=== PATIENT | female | born 1960 | race Caucasian/White ===

== ENCOUNTER → 2023-09-12 14:19 | Outpatient (REF) | payer BC, SELFPAY | LOC: HWRAD 14:19 | PROVIDERS: ATTENDING PHYSICIAN Internal Medicine Hematology & Oncology; FAMILY PHYSICIAN Family Medicine | DX: C50.911 Malignant neoplasm of unspecified site of right female breast (principal); Z13.820 Encounter for screening for osteoporosis; M81.0 Age-related osteoporosis without current pathological fracture | CPT/HCPCS: 77080 ==

== ENCOUNTER → 2023-11-04 15:20 | Outpatient (REF) | payer BC, SELFPAY | LOC: WDC 15:20 | PROVIDERS: ATTENDING PHYSICIAN Surgery; FAMILY PHYSICIAN Family Medicine | DX: Z12.31 Encounter for screening mammogram for malignant neoplasm of breast (principal) | CPT/HCPCS: 77063; 77067 ==

== ENCOUNTER → 2024-02-03 14:49 | Outpatient (REF) | payer BC, SELFPAY | LOC: WDC 14:49 | PROVIDERS: ATTENDING PHYSICIAN Surgery; FAMILY PHYSICIAN Family Medicine | DX: R92.2 Inconclusive mammogram (principal) | CPT/HCPCS: 76641 ==

== ENCOUNTER 2024-07-29 18:37 | Inpatient (IN) | payer BC, SELFPAY ==
[2024-07-29 12:00] VITALS: BP 130/81
[2024-07-29 12:23] LABS: % Basophils 0.4 % (0-2); % Eosinophils 1.3 % (0-6); % Immature Granulocytes 0.4 % (0-0.5); % Lymphocytes 10.2 % (20.5-51.1); % Monocytes 8.5 % (1.7-9.3); % Neutrophils 79.2 % (42.2-75.2); Absolute Eosinophils 0.1 10^3/uL (0-0.7); Absolute Lymphocytes 0.8 10^3/uL (1.2-3.4); Absolute Monocytes 0.6 10^3/uL (0.1-0.6); Hematocrit 33.5 % (37.0-47.0); Mean Corp Hgb Conc. 35.8 g/dL (33.0-37.0); Mean Corpuscular Hgb 30.8 pg (27.0-31.0); Mean Corpuscular Volume 86.1 fL (81.0-99.0); Mean Platelet Volume 8.5 fL (7.4-10.4); Nucleated Red Blood Cells % 0 %; Platelet Count 298 10^3/uL (130-400); Red Blood Cell Count 3.89 10^6/uL (4.20-5.40); Red Cell Dist. Width 11.6 % (11.5-14.5); White Blood Cell Count 7.5 10^3/uL (4.8-10.8)
[2024-07-29 12:37] LABS: ALT (SGPT) 33 U/L (0-35); AST (SGOT) 28 U/L (14-36); Albumin 3.7 g/dl (3.5-5.0); Alkaline Phosphatase 96 U/L (38-126); Blood Urea Nitrogen 14 mg/dl (7-17); Calcium 9.1 mg/dl (8.4-10.2); Carbon Dioxide 26 mmol/L (22-30); Chloride 98 mmol/L (98-107); Glucose 213 mg/dl (70-99); Potassium 3.6 mmol/L (3.5-5.1); Sodium 135 mmol/L (135-145); Total Bilirubin 0.4 mg/dl (0.2-1.3); Total Protein 6.5 g/dl (6.3-8.2); eGFR > 60.00
[2024-07-29 13:33] VITALS: BMI 30.7
--- NOTE | 2024-07-29 13:46 | ED.GENMED ---
History of Present Illness
General
Chief Complaint: Abdominal Pain
Source: patient
Exam Limitations: none
Time Seen by Provider: 07/29/24 13:29
Nursing documentation reviewed up to this point in time: agreed with
History of Present Illness
History of Present Illness:
Patient is a 64-year-old female presents to the ER for evaluation. Patient is currently being treated for diverticulitis on antibiotics had a CAT scan done today which showed possible perforation.
CAT scan was done this morning and dictation does read 10 cm in length segment of acute diverticulitis in the proximal and mid sigmoid colon with suspected confined perforation. Patient has been taking Keflex and
Flagyl prescribed by family doctor since Saturday however has also had some mild continued discomfort. She does report today she has felt better than previous days.
Review of Systems
Review of Systems
Allergies reviewed?: Yes
All Other Systems: ROS reviewed and negative except as documented in HPI and ROS
Constitutional: Reports no symptoms; Denies fever, fatigue or chills
ABD/GI: Reports abdominal pain and constipated; Denies nausea, vomiting or diarrhea
: Reports no symptoms
Musculoskeletal: Reports no symptoms
Hematologic/Lymphatic: Reports no symptoms
Psychiatric: Reports no symptoms
Phy Exam
General Physical Exam
General Presentation: no apparent distress
General age: appears stated age
General Skin: warm and dry
General Habitus: normal
General Mental: alert
General Hydration: appears well hydrated
Gastrointestinal Exam
Gastrointestinal Exam: soft and other (mild lower abdominal tenderness )
Neurological Exam
Neurological Exam: alert and oriented x3
Musculoskeletal Exam
Musculoskeletal Exam: full ROM
Skin Exam
Skin Exam: normal color and warm/dry
Psychiatric Exam
Psychiatric Exam: normal mood/affect
Course
Orders/Labs/Results
Orders:
Orders
07/29/24 12:14
CMP [Comprehensive Metabolic Panel] Urgent
Complete Blood Count/With Diff Urgent
07/29/24 14:46
Piperacillin/Tazo 3.375 Gram [Zosyn] 3.375 gram in 50 ml IV NOW
Abnormal Lab Results
07/29/24
12:14
RBC 3.89 L 10^6/uL
(4.20-5.40)
Hct 33.5 L %
(37.0-47.0)
Absolute Lymphs (auto) 0.8 L 10^3/uL
(1.2-3.4)
Neutrophils % 79.2 H %
(42.2-75.2)
Lymphocytes % 10.2 L %
(20.5-51.1)
Glucose 213 H mg/dl
(70-99)
07/29/24 12:14
07/29/24 12:14
Vital Signs
Initial and Last Documented VS:
Initial Vital Signs
Temp Pulse Resp BP Pulse Ox
98.4 F 85 18 130/81 97
07/29/24 12:00 07/29/24 12:00 07/29/24 12:00 07/29/24 12:00 07/29/24 12:00
Last Documented Vital Signs
Temp Pulse Resp BP Pulse Ox
98.4 F 85 18 130/81 97
07/29/24 12:00 07/29/24 12:00 07/29/24 12:00 07/29/24 12:00 07/29/24 12:00
MDM/Problems Addressed
MDM/Problems Addressed:
Patient is a 64-year-old female who has been treated for diverticulitis since Saturday for the past 5 days with Keflex and Flagyl still with continued pain. She saw her PCP yesterday had an outpatient CAT scan done today which showed 10 cm
diverticulitis in the proximal sigmoid colon with suspected confined perforation at the anterior superior segment. She does report that today is the best that she has felt so far. She is nontoxic afebrile with a normal white count. Discussed with
colorectal surgery.
Patient was evaluated by Dr. Bah IV Zosyn ordered.
Patient admitted to Dr. Bah 's service.
*Radiology
Radiology exam reviewed: radiology read reviewed
*Pulse Oximetry
Patient hypoxic: no
*Critical Care Note
Total Time (30-74mins, 75-104mins- exclusive of procedures): Not Applicable
Patient Management
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
ED Attending Note
-
Portions of this chart may have been created with voice recognition software.� Occasional wrong word or��sound alike� substitutions may have occurred due to the inherent limitations of voice recognition software.
Discharge Plan
Departure
Patient Disposition: Admit
Date of Disposition: 07/29/24
Time of Disposition: 15:17
Admit to: Med/Surg
Admit to doctor: DR Chuck Bah
Presentation/result/management discussed w/ accepting MD/DO: Chuck Bah
Patient with high blood pressure during this ER visit?: No
Condition: Fair
Covid-19: Not Applicable
Discharge Problem:
diverticulitis with perforation
Prescriptions:
No Action
pantoprazole 40 MG tablet,delayed release (DR/EC)
40 mg PO DAILY
zmmfxsxghmd-yyuylizbx-qik C-Mn 1 TAB tablet
1 tab PO DAILY
escitalopram oxalate 20 MG tablet
20 mg PO DAILY@1999
rosuvastatin 20 MG tablet
20 mg PO DAILY@2000
coenzyme E70-npdefiw E 1 CAP capsule
200 mg PO DAILY@1999
cholecalciferol (vitamin D3) 2,000 UNITS tablet
2,000 units PO DAILY@1999
Centrum Silver Women 1 EACH tablet
1 ea PO DAILY@1999
anastrozole 1 mg tablet
1 mg PO DAILY@1999
metronidazole 500 mg tablet
500 mg PO BID
Rx Instructions:
07/29/24: initiated 07/24/24 x 7 days
cephalexin 500 mg capsule
500 mg PO TID
Rx Instructions:
07/29/24: strated 07/24/24 x 7 days
calcium carbonate-vitamin D3 [Calcium 500 + D] 500 mg-10 mcg (400 unit) Tablet
1 tab PO DAILY@1999
Rybelsus 14 mg tablet
14 mg PO DAILY
Prolia 60 mg/mL Syringe
60 mg SC [id number]
Referrals:
Maverick Bee DO [Family Provider] -
Interventions
Interventions:
*Risk Screen - Suicide Last Done: 07/29/24 12:00
*General Assessment Last Done: 07/29/24 12:00
*Neglect/Abuse Screening Last Done: 07/29/24 12:00
ED- Fall Risk Assessment Last Done: 07/29/24 13:33
*ED COVID-19 Vaccine History Last Done: 07/29/24 13:33
CZ-Zmbefe-Piijeqphmk Assessment Last Done: 07/29/24 13:41
Discharge Date and Time
Print Language: INDONESIAN
[2024-07-29] MEDS: ZOSYN 50 IV ×2 (14:59→20:26)
--- NOTE | 2024-07-29 17:33 | CON.CRS ---
Consultation
-
Performing Provider: Chuck Bah MD
Reason for Consultation: recurrent diverticulitis
Medical History
-
History of Present Illness:
64-year-old female with PMH of right breast cancer s/p lumpectomy, anxiety, GERD, HLD who presents with worsening left-sided abdominal pain. She first noticed left-sided discomfort about 7 to 8 days ago. This discomfort became worse. She notified
her PCP about 5 days ago and was prescribed Keflex and Flagyl for concern about recurrent diverticulitis. She had improvement for 1 to 2 days, but then noted the discomfort started to get worse. She denies any fevers, nausea, vomiting, chest pain,
SOB, urinary symptoms, but does note some associated constipation. Her PCP ordered a CT scan, that was done this morning. It was read as a sigmoid diverticulitis with likely contained perforation. Therefore, she was instructed to go to the ED.
Her last colonoscopy was in [address] Menjivar, which showed small hemorrhoids and scattered diverticula throughout the entire colon.
Past Medical History
Past Medical History: Other (As above)
Past Surgical History: Other (Right lumpectomy 2020, ankle cyst removal)
Social History
Tobacco: Non-Smoker
Alcohol: None
Drug: None
Family History
Family History: Reviewed & Not Pertinent
Allergies / Home Medications
Allergy/AdvReac Type Severity Reaction Status Date / Time
NKA - No Known Allergies Allergy NONE Uncoded 07/29/24 13:35
�Medication �Instructions �Recorded �Confirmed �Type
cholecalciferol (vitamin D3) 50 2,000 units PO DAILY@199908/29/20 07/29/24 History
mcg (2,000 unit) tablet
coenzyme W50-nacfycr E 100 mg-100 200 mg PO DAILY@199908/29/20 07/29/24 History
unit capsule
escitalopram oxalate 20 mg tablet 20 mg PO DAILY@199908/29/20 07/29/24 History
bsqmdfkvdug-yxacfanmi-idh C-Mn 750 1 tab PO DAILY 08/29/20 07/29/24 History
mg-600 mg-55 mg-5 mg tablet
ybgoeije-lsly-zlry 8 mg-folic 400 1 ea PO DAILY@199908/29/20 07/29/24 History
mcg-K 50 mcg-lutein 300 mcg tablet
(Centrum Silver Women)
pantoprazole 40 mg tablet,delayed 40 mg PO DAILY 08/29/20 07/29/24 History
release
rosuvastatin 20 mg tablet 20 mg PO DAILY@199908/29/20 07/29/24 History
anastrozole 1 mg tablet 1 mg PO DAILY@199907/29/24 07/29/24 History
calcium 500 mg (as 1 tab PO DAILY@199907/29/24 07/29/24 History
carbonate)-vitamin D3 10 mcg (400
unit) tablet (Calcium 500 + D)
cephalexin 500 mg capsule 500 mg PO TID 07/29/24 07/29/24 History
denosumab 60 mg/mL subcutaneous 60 mg SC [id number] 07/29/24 07/29/24 History
syringe (Prolia)
metronidazole 500 mg tablet 500 mg PO BID 07/29/24 07/29/24 History
semaglutide 14 mg tablet (Rybelsus) 14 mg PO DAILY 07/29/24 07/29/24 History
Review of Systems
-
A 10 point review of systems was completed, and was negative except as per HPI.
Physical Exam
Vital Signs
Temp 98.4 F 07/29/24 12:00
Pulse 85 07/29/24 12:00
Resp Rate 18 07/29/24 12:00
Blood pressure 130/81 07/29/24 12:00
SaO2 97 07/29/24 12:00
07/28/24 07/29/24 07/30/24
06:59 06:59 06:59
Actual Weight 81 kg
Body Mass Index (BMI) 30.7
Lab Results / Allergies
07/29/24 12:14
07/29/24 12:14
WBC 7.5 10^3/uL (4.8-10.8) 07/29/24 12:14
Hgb 12.0 g/dL (12.0-16.0) 07/29/24 12:14
Hct 33.5 % (37.0-47.0) L 07/29/24 12:14
Plt Count 298 10^3/uL (130-400) 07/29/24 12:14
Abs Immat Gran (auto) 0.0 10^3/uL (0-0.05) 07/29/24 12:14
Neutrophils % 79.2 % (42.2-75.2) H 07/29/24 12:14
Allergy/AdvReac Type Severity Reaction Status Date / Time
NKA - No Known Allergies Allergy NONE Uncoded 07/29/24 13:35
Physical Exam
General: Well Developed, Well Nourished and No Apparent Distress
HEENT: Atraumatic
Respiratory: Non Labored Respirations
GI: Soft, Non Distended and Tender (Mildly tender left lower quadrant, otherwise nontender, no rebound or guarding)
Skin: Warm and Dry
Neuro: AO x 3
Assessment / Plan
-
64-year-old female with PMH of right breast cancer s/p lumpectomy, anxiety, GERD, HLD, pre-diabetes who presents with worsening left-sided abdominal pain. She first noticed left-sided discomfort about 7 to 8 days ago. This discomfort became worse.
She notified her PCP about 5 days ago and was prescribed Keflex and Flagyl for concern about recurrent diverticulitis. She had improvement for 1 to 2 days, but then noted the discomfort started to get worse. She denies any fevers, nausea,
vomiting, chest pain, SOB, urinary symptoms, but does note some associated constipation. Her PCP ordered a CT scan, that was done this morning. It was read as a sigmoid diverticulitis with likely contained perforation. Therefore, she was
instructed to go to the ED. Her last colonoscopy was in [address] Menjivar, which showed small hemorrhoids and scattered diverticula throughout the entire colon.
AFVSS
WBC 7.9, Hb 12.0, CR 0.7, CRP 123.3
�Acute recurrent diverticulitis with localized perforation; first episode 4 to 5 years ago, has had several episodes since
�No hemodynamic instability or evidence of peritonitis; recommend nonoperative measures
�Explained the pathophysiology of uncomplicated versus complicated diverticulitis, as well as the risks and benefits of nonoperative measures versus surgery; surgery in the acute setting would likely require a large incision and ostomy; surgery in
the elective setting can frequently be done minimally invasively and avoid an ostomy; risk of nonoperative measures include clinical worsening and need for urgent surgery; patient understood and was agreeable to plan
�Okay for clears and p.o. meds
� Pain control with Tylenol, Toradol, Dilaudid as needed
� DVT PPx with Lovenox
� Restart home medications
� Start insulin sliding scale
� OOB/IS
Dispo- if clinically improves, would recommend repeat colonoscopy outpatient and discussion regarding elective sigmoidectomy due to recurrent nature of disease
[2024-07-29 19:46] VITALS: BMI 29.3
[2024-07-29 19:47] VITALS: BP 127/75
--- NOTE | 2024-07-29 20:00 | PTCARENOTE ---
Patient arrived from the ED via stretcher. Patient ambulated into the room. AAOx3, VSS. Patient has no c/o pain at this time. Patient educated on plan of care and medications. Patient oriented to the room, call rosenberg is within reach.
[2024-07-29] MEDS: LR 1000 IV (20:26)
[2024-07-29 20:38] LABS: Urine Albumin Trace (Neg - Trace); Urine Bilirubin Negative (Negative); Urine Character Clear (Clear); Urine Color Yellow; Urine Glucose Negative (Negative); Urine Ketone Negative (Negative); Urine Leukocyte 1+ (Negative); Urine Nitrite Negative (Negative); Urine Occult Blood 1+ (Negative); Urine Urobilinogen Negative (Neg - 1+)
[2024-07-29] MEDS: LEXAPRO 20 MG PO (20:40)
[2024-07-29] MEDS: CRESTOR 20 MG PO (20:40)
[2024-07-29] MEDS: ARIMIDEX 1 MG PO (20:40)
[2024-07-29 20:50] LABS: Urine Squamous Cell 26-30 /LPF (Few)
[2024-07-29 20:51] LABS: Urine Bacteria Moderate (Negative); Urine Red Blood Cell 0-2 /HPF (0-2)
[2024-07-29 21:22] LABS: Glucose - Point of Care 129 mg/dl (70-99)
[2024-07-29 23:26] VITALS: BP 120/70
[2024-07-30] MEDS: ZOSYN 50 IV ×4 (01:57→20:38)
[2024-07-30 03:06] VITALS: BP 118/67
[2024-07-30 06:00] VITALS: BMI 29.1
[2024-07-30] MEDS: PROTONIX 40 MG PO (07:34)
[2024-07-30 08:13] LABS: % Basophils 0.4 % (0-2); % Eosinophils 2.5 % (0-6); % Immature Granulocytes 0.6 % (0-0.5); % Lymphocytes 17.8 % (20.5-51.1); % Monocytes 13.5 % (1.7-9.3); % Neutrophils 65.2 % (42.2-75.2); Absolute Eosinophils 0.1 10^3/uL (0-0.7); Absolute Lymphocytes 0.9 10^3/uL (1.2-3.4); Absolute Monocytes 0.7 10^3/uL (0.1-0.6); Absolute Neutrophils 3.2 10^3/uL (1.4-6.5); Hematocrit 33.6 % (37.0-47.0); Hemoglobin 11.4 g/dL (12.0-16.0); Mean Corp Hgb Conc. 33.9 g/dL (33.0-37.0); Mean Corpuscular Hgb 29.9 pg (27.0-31.0); Mean Corpuscular Volume 88.2 fL (81.0-99.0); Mean Platelet Volume 8.6 fL (7.4-10.4); Nucleated Red Blood Cells % 0 %; Platelet Count 312 10^3/uL (130-400); Red Blood Cell Count 3.81 10^6/uL (4.20-5.40); Red Cell Dist. Width 11.6 % (11.5-14.5); White Blood Cell Count 4.9 10^3/uL (4.8-10.8)
[2024-07-30 08:16] LABS: INR 1.14; PT 15.2 Sec (11.4-14.6)
[2024-07-30 08:17] LABS: APTT 38.3 Sec (23.4-35.0)
[2024-07-30 08:23] LABS: Glucose - Point of Care 109 mg/dl (70-99)
[2024-07-30 08:42] VITALS: BP 128/75
[2024-07-30 08:51] LABS: Glycohemoglobin (HgbA1c) 5.7 % (4.0-5.6)
[2024-07-30 08:55] LABS: Blood Urea Nitrogen 13 mg/dl (7-17); Calcium 9.2 mg/dl (8.4-10.2); Carbon Dioxide 31 mmol/L (22-30); Chloride 99 mmol/L (98-107); Estimated Creatinine Clearance 64 ml/min; Glucose 105 mg/dl (70-99); Magnesium 2.1 mg/dl (1.6-2.3); Potassium 4.5 mmol/L (3.5-5.1); Sodium 141 mmol/L (135-145); eGFR > 60.00
[2024-07-30] MEDS: LR IV (10:54)
--- NOTE | 2024-07-30 10:55 | PTCARENOTE ---
Patient tolerating clear liquid diet. Patient advanced to full liquids (gluten free). Left lower quadrant tender to palpation, but denies acute pain. Had semi-formed soft BM today. Denies blood in stool. IV antibiotics as ordered.
--- NOTE | 2024-07-30 11:23 | W.PN.CRS1 ---
Addendum entered and electronically signed by Chuck Bah MD 07/30/24 12:42:
Error, missing info; ABD soft, nondistended, minimally to mildly ttp in the LLQ, no rebound/guarding (improved from yesterday)
Original Note:
Today's Communication / Plan
-
Advance to full liquids
Assessment/Plan
-
64-year-old female with left-sided abdominal pain, found to have acute recurrent diverticulitis, multiple prior attacks
-Vitals normal
-WBC normal
-Advance to full liquid diet
-Discontinue IV fluids
-Out of bed as tolerated
-No plans for surgery at this time
-Will likely need elective surgery in the future given the nature of her disease, to be discussed with Dr. Bah in an outpatient setting.
Subjective Data
Subjective Data
Date of Service: July 30, 2024
Patient states that she feels well. She denies nausea or vomiting. She had a bowel movement yesterday and looks more normal. Her pain is improving.
Objective Data
-
Vital Signs
Temp Pulse Resp BP Pulse Ox
98 F 62 18 128/75 94
07/30/24 08:42 07/30/24 08:42 07/30/24 08:42 07/30/24 08:42 07/30/24 08:57
Intake & Output
07/29/24 07/30/24 07/31/24
06:59 06:59 06:59
Intake Total 1480 / 1480
Output Total 310 / 310
Balance 1170 / 1170
Intake:
Oral fluids 480 / 480
IV fluids (Total) 900 / 900
IV piggybacks 100 / 100
Output:
Urine, Voided 310 / 310
Other:
Number of approximated SMALL 1
amounts of urine
Number of approximated MODERATE 1
amounts of urine
Lab Results
07/30/24 06:34
07/30/24 06:34
Physical Exam
-
General: No Acute Distress and AOx3
Abdomen: Soft, Non Distended and Tender (Mild left lower quadrant)
Skin: Warm and Dry
[2024-07-30 12:12] LABS: Glucose - Point of Care 101 mg/dl (70-99)
[2024-07-30 16:37] VITALS: BP 136/83
[2024-07-30 19:17] LABS: Hepatitis C Antibody Negative (Negative)
[2024-07-30] MEDS: CRESTOR 20 MG PO (20:38)
[2024-07-30] MEDS: LEXAPRO 20 MG PO (20:38)
[2024-07-30] MEDS: ARIMIDEX 1 MG PO (20:38)
[2024-07-30 21:48] LABS: Glucose - Point of Care 121 mg/dl (70-99)
[2024-07-30 23:00] VITALS: BP 132/73
[2024-07-31] MEDS: ZOSYN 50 IV ×2 (02:20→08:37)
[2024-07-31 03:00] VITALS: BP 111/70
[2024-07-31 06:00] VITALS: BMI 28.9
[2024-07-31 06:26] LABS: Glucose - Point of Care 95 mg/dl (70-99)
[2024-07-31 07:46] LABS: % Basophils 0.6 % (0-2); % Eosinophils 4.2 % (0-6); % Immature Granulocytes 0.3 % (0-0.5); % Lymphocytes 21.1 % (20.5-51.1); % Monocytes 15.5 % (1.7-9.3); % Neutrophils 58.3 % (42.2-75.2); Absolute Eosinophils 0.2 10^3/uL (0-0.7); Absolute Lymphocytes 0.8 10^3/uL (1.2-3.4); Absolute Monocytes 0.6 10^3/uL (0.1-0.6); Absolute Neutrophils 2.1 10^3/uL (1.4-6.5); Hematocrit 33.9 % (37.0-47.0); Hemoglobin 11.9 g/dL (12.0-16.0); Mean Corp Hgb Conc. 35.1 g/dL (33.0-37.0); Mean Corpuscular Hgb 30.3 pg (27.0-31.0); Mean Corpuscular Volume 86.3 fL (81.0-99.0); Mean Platelet Volume 8.2 fL (7.4-10.4); Nucleated Red Blood Cells % 0 %; Platelet Count 324 10^3/uL (130-400); Red Blood Cell Count 3.93 10^6/uL (4.20-5.40); Red Cell Dist. Width 11.5 % (11.5-14.5); White Blood Cell Count 3.6 10^3/uL (4.8-10.8)
[2024-07-31 08:22] LABS: Glucose - Point of Care 107 mg/dl (70-99)
[2024-07-31 08:31] LABS: Blood Urea Nitrogen 13 mg/dl (7-17); Calcium 9.4 mg/dl (8.4-10.2); Carbon Dioxide 27 mmol/L (22-30); Chloride 102 mmol/L (98-107); Estimated Creatinine Clearance 82 ml/min; Glucose 116 mg/dl (70-99); Potassium 4.2 mmol/L (3.5-5.1); Sodium 141 mmol/L (135-145); eGFR > 60.00
[2024-07-31 08:35] VITALS: BP 141/76
[2024-07-31] MEDS: PROTONIX 40 MG PO (08:37)
[2024-07-31 11:37] VITALS: BP 107/66
--- NOTE | 2024-07-31 12:25 | W.PN.CRS1 ---
Today's Communication / Plan
-
Discharge
Assessment/Plan
-
64-year-old female with left-sided abdominal pain, found to have acute recurrent diverticulitis, multiple prior attacks
-Vitals normal
-WBC normal
-Tolerating a low residue diet
-Discontinue IV fluids
-Out of bed as tolerated
-No plans for surgery at this time
-Will likely need elective surgery in the future given the nature of her disease, to be discussed with Dr. Bah in an outpatient setting.
-Okay for discharge today. All discharge instructions discussed with the patient including medications, activity levels, and follow-up. All questions addressed.
Subjective Data
Subjective Data
Date of Service: July 31, 2024
Patient states she feels fine. She denies any pain. She has mild left lower quadrant tenderness which has much improved since her admission. She denies nausea or vomiting.
Objective Data
-
Vital Signs
Temp Pulse Resp BP Pulse Ox
97.9 F 64 18 107/66 98
07/31/24 11:37 07/31/24 11:37 07/31/24 11:37 07/31/24 11:37 07/31/24 11:37
Intake & Output
07/30/24 07/31/24 08/01/24
06:59 06:59 06:59
Intake Total 1480 / 1480 1540 / 1540
Output Total 310 / 310 425 / 425 150 / 150
Balance 1170 / 1170 1115 / 1115 -150 / -150
Intake:
Oral fluids 480 / 480 1440 / 1440
IV fluids (Total) 900 / 900
IV piggybacks 100 / 100 100 / 100
Output:
Urine, Voided 310 / 310 425 / 425 150 / 150
Other:
Number of approximated SMALL 1
amounts of urine
Number of approximated MODERATE 1 2
amounts of urine
How many times incontinent 1
MODERATE amount urine
Lab Results
07/31/24 07:24
07/31/24 07:24
Physical Exam
-
General: No Acute Distress and AOx3
Abdomen: Soft, Non Distended and Tender (Very mild left lower quadrant)
Skin: Warm and Dry
--- NOTE | 2024-07-31 12:29 | W.DS.TRANS ---
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
-
Discharge Instructions:
Discharge Diagnosis/Procedures acute recurrent diverticulitis
Diet Low Residue
Activity As tolerated
Driving Restrictions As prior to admission
Bathing Restrictions None
Instructions: Low-fiber diet
Stand-Alone Forms:
Changes to Home Medications: Yes
Discharge Medications:
DC Medications w/original date entered in [employer] [facility]
cholecalciferol (vitamin D3) 50 mcg (2,000 unit) tablet 2,000 units PO DAILY@199908/29/20
coenzyme N80-cldutmf E 100 mg-100 unit capsule 200 mg PO DAILY@199908/29/20
escitalopram oxalate 20 mg tablet 20 mg PO DAILY@199908/29/20
ygfvvhupjsh-uvjsclide-ncm C-Mn 750 mg-600 mg-55 mg-5 mg tablet 1 tab PO DAILY 08/29/20
blqrzspz-pxyk-iver 8 mg-folic 400 mcg-K 50 mcg-lutein 300 mcg tablet (Centrum Silver Women) 1 ea PO DAILY@199908/29/20
pantoprazole 40 mg tablet,delayed release 40 mg PO DAILY 08/29/20
rosuvastatin 20 mg tablet 20 mg PO DAILY@199908/29/20
anastrozole 1 mg tablet 1 mg PO DAILY@199907/29/24
calcium 500 mg (as carbonate)-vitamin D3 10 mcg (400 unit) tablet (Calcium 500 + D) 1 tab PO DAILY@199907/29/24
denosumab 60 mg/mL subcutaneous syringe (Prolia) 60 mg SC [id number] 07/29/24
semaglutide 14 mg tablet (Rybelsus) 14 mg PO DAILY 07/29/24
amoxicillin 875 mg-potassium clavulanate 125 mg tablet 1 tab PO Q12H 8 days #16 tabs 07/31/24
Home Medication Changes
amoxicillin 875 mg-potassium clavulanate 125 mg tablet 1 tab PO Q12H 8 days #16 tabs 07/31/24
Pending Results: No
[2024-07-31 12:31] LABS: Glucose - Point of Care 145 mg/dl (70-99)
--- NOTE | 2024-07-31 13:34 | CM ---
Pt admitted from home last night via ED due to recurrent diverticulosis. 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 She is feeling better and will follow up with Dr. Bah at discharge. Her will drive her home.
Plan: Discharge to home with no needs.
PCP: Maverick Bee
Pharm: [facility] in [facility]
== END 2024-07-31 14:20 | disposition home or self-care (01) | DRG 392 ==
LOC: 4 EAST ACU 18:37
PROVIDERS: Emergency Medicine; Physician Assistant; ADMITTING PHYSICIAN Surgery; EMERGENCY PHYSICIAN Emergency Medicine; FAMILY PHYSICIAN Family Medicine
DX: K57.20 Diverticulitis of large intestine with perforation and abscess without bleeding (principal); E78.5 Hyperlipidemia, unspecified; F41.9 Anxiety disorder, unspecified; K21.9 Gastro-esophageal reflux disease without esophagitis; R73.03 Prediabetes; K59.00 Constipation, unspecified; Z85.3 Personal history of malignant neoplasm of breast
CPT/HCPCS: 74176; 80048; 80053; 81003; 81015; 82962; 83036; 83735; 85025; 85610; 85730; 86140; 86803; 87086; 96365; 99284

== ENCOUNTER 2024-10-08 06:18 | Day surgery (SDC) | payer BC, SELFPAY | END 2024-10-08 14:14 | disposition home or self-care (01) | LOC: GI 06:18 | PROVIDERS: ATTENDING PHYSICIAN Internal Medicine | DX: K57.32 Diverticulitis of large intestine without perforation or abscess without bleeding (principal); K57.30 Diverticulosis of large intestine without perforation or abscess without bleeding | CPT/HCPCS: 45378 ==

== ENCOUNTER 2024-10-09 06:10 | Inpatient (IN) | payer BC, SELFPAY ==
[2024-10-01 08:40] LABS: Hematocrit 40.4 % (37.0-47.0); Hemoglobin 14.1 g/dL (12.0-16.0); Mean Corp Hgb Conc. 34.9 g/dL (33.0-37.0); Mean Corpuscular Hgb 29.7 pg (27.0-31.0); Mean Corpuscular Volume 85.2 fL (81.0-99.0); Mean Platelet Volume 8.1 fL (7.4-10.4); Platelet Count 241 10^3/uL (130-400); Red Blood Cell Count 4.74 10^6/uL (4.20-5.40); Red Cell Dist. Width 12.9 % (11.5-14.5); White Blood Cell Count 4.1 10^3/uL (4.8-10.8)
[2024-10-01 08:48] LABS: APTT 28.5 Sec (23.4-35.0); INR 0.94; PT 13.1 Sec (11.4-14.6)
[2024-10-01 09:09] LABS: ALT (SGPT) 26 U/L (0-35); AST (SGOT) 27 U/L (14-36); Albumin 4.7 g/dl (3.5-5.0); Alkaline Phosphatase 65 U/L (38-126); Blood Urea Nitrogen 16 mg/dl (7-17); Calcium 9.1 mg/dl (8.4-10.2); Carbon Dioxide 26 mmol/L (22-30); Chloride 103 mmol/L (98-107); Glucose 111 mg/dl (70-99); Potassium 4.5 mmol/L (3.5-5.1); Sodium 139 mmol/L (135-145); Total Bilirubin 0.5 mg/dl (0.2-1.3); eGFR > 60.00
[2024-10-01 13:39] VITALS: BMI 30.6
--- NOTE | 2024-10-02 10:31 | PTCARENOTE ---
Patient scheduled for colonoscopy pre surgery- stated she did not have any bowel prep, instructed to contact office for additional instructions. Patient agrees with plan.
[2024-10-09] VITALS (10 sets, daily range): BP systolic 105–135; BP diastolic 63–83; BMI 30.6
[2024-10-09] MEDS: ENTEREG 12 MG PO (06:57)
[2024-10-09] MEDS: CELEBREX 200 MG PO (06:57)
[2024-10-09] MEDS: TYLENOL 1000 MG PO ×3 (06:57→23:54)
[2024-10-09] MEDS: HEPARIN 5000 UNITS SC (06:58)
[2024-10-09] MEDS: LYRICA 150 MG PO (07:03)
[2024-10-09] MEDS: NORMOSOL-R/PLASMALYTE-A 1000 IV ×2 (07:12→14:16)
[2024-10-09 07:14] LABS: Glucose - Point of Care 117 mg/dl (70-99)
--- NOTE | 2024-10-09 12:20 | W.IMMPOSTOP ---
Surgical Immed Post Op Note
-
Primary Surgeon: Chuck Bah MD
Assisting Surgeon: MICA Vee
Pre-op Diagnosis: Recurrent diverticulitis
Post-op Diagnosis: Recurrent diverticulitis with abscess
Procedure Performed: Robotic sigmoidectomy, drainage of intra-abdominal abscess, lysis of adhesions, mesenteric angiography, flexible sigmoidoscopy, laparoscopic tap block
Anesthesia Type: General
Specimen / Cultures: Sigmoid
Estimated Blood Loss: 50 mL
IVF: 1.4 L
UOP 200 mL
Complications: None
Operative Findings: Thickened sigmoid with small intra-abdominal abscess encountered at the mid sigmoid that was involving the left lower abdomen close to the pelvic brim; performed medial to lateral dissection and easily identified the right and
left ureter, and kept him safe; ligated the TEA close to its takeoff; perform medial to lateral dissection up to the proximal descending colon; mobilized the rectosigmoid starting posteriorly and taking this around anteriorly; there was a thick scar
at the anterior reflection between the rectum and uterus; dissected down below this; performed flexible sigmoidoscopy and cleared the rectum of minimal amount of liquid stool; placed sizers and selected my staple line just distal to this thickened
scar; upsize the RLQ port site and divided with the 60 mm robotic stapler with a blue load; freed a few omental adhesions from the descending colon; performed intracorporeal EEA stapled anastomosis; donuts intact, negative leak test, anastomosis
intact on flexible sigmoidoscopy; placed some Lembert 2-0 Vicryl's along the anastomosis anteriorly; closed the fascia of the RLQ port site with 0 Vicryl and performed a laparoscopic TAP block; remove the specimen and closed in the usual fashion
--- NOTE | 2024-10-09 12:27 | OR.RPT ---
Operative Report
Operative Report
DATE OF OPERATION: 10/09/2024
SURGEON: Chuck Bah MD
PREOPERATIVE DIAGNOSIS: Recurrent diverticulitis
POSTOPERATIVE DIAGNOSIS: Recurrent diverticulitis with abscess
OPERATION: Robotic sigmoidectomy, adhesiolysis greater than 1 hr, drainage of intra-abdominal abscess, mesenteric angiography with ICG, flexible sigmoidoscopy, laparoscopic TAP block
ASSISTANTS:
1. MICA Vee
ANESTHESIA: General
ESTIMATED BLOOD LOSS: 50 mL
IVF: 1.4 L
URINE OUTPUT: 200 mL
FINDINGS:
1. Thickened sigmoid with chronic inflammation; mid-portion of sigmoid associated with small intra-abdominal abscess adherent to the left lower quadrant close to the pelvic brim
2. Thickened scar associated with the anterior reflexion between the rectum and uterus
3. Performed intracorporeal EEA stapled anastomosis at about 15 cm proximal to the anal verge; intact donuts, negative leak test, anastomosis intact on flexible sigmoidoscopy
SPECIMENS:
1. Sigmoid colon
DRAINS: None
COMPLICATIONS: No immediate complications.
INDICATIONS: The patient is a 64-year-old female who initially presented to the [place] ED with localized perforation due to diverticulitis. She was treated nonoperatively and was discharged 2 days later. This was her fifth episode of
diverticulitis and was clinically worse than her previous episodes. I discussed the risks and benefits with continued nonoperative management versus sigmoidectomy to decrease the risk of urgent surgery and the patient elected to proceed with
surgery. The operation was discussed with the patient in detail, including the risks, benefits and alternatives. Risks described included, but not limited to, bleeding, infection, anastomotic leak, damage to nearby structures (i.e.- ureter, bowel,
solid organs), incisional hernia, need for ostomy creation, conversion to open, recurrence of diverticulitis and anesthetic risks. The patient understood and agreed to proceed.
PROCEDURE IN DETAIL: The patient was taken to the operating room and placed on the operating table in supine position. Sequential compression devices were placed bilaterally. General anesthesia was induced and the patient was intubated without
complication. The patient was placed in lithotomy position with both arms tucked. Diaz catheter was placed with sterile technique. The abdomen was prepped and draped in a sterile fashion. A time-out was performed verifying the correct patient,
procedure, operative site, positioning, and special equipment. Anesthesia placed an orogastric tube. Preoperative antibiotics were given. A marking pen was used to roger out the midline.
An 8 mm incision at Ruiz's point was made with an 11 blade scalpel. A Veress needle was used to gain abdominal access. After 3 clicks, the insufflation was connected to the Veress needle and the opening pressure was noted to be less than 8 mmHg.
The abdomen was insufflated to a pressure of 12 mmHg. An 8 mm robotic trocar was inserted. The robotic camera was advanced and intra-abdominal placement was confirmed. The abdomen was examined. No injuries were noted from port entry or from the
Veress needle. No concerning lesions were noted on the surface of the liver or the peritoneum. The remaining three 8mm robotic ports were placed under direct visualization in a diagonal fashion from Ruiz's point to the right lower quadrant, as
well as an 8mm assist port in the right lateral mid abdomen, taking care to avoid injury to the right epigastric vessels. The left upper quadrant port was changed to the air seal port.
A 4 cm Pfannenstiel incision was created 2 fingerbreadths above the pubic symphysis. This was carried down to the anterior fascia with electrocautery and hemostasis was assured. The fascia was incised to just beyond the length of the skin
incision. The fascia was grasped with Charles's and elevated. The adhesions to the anterior fascia were taken down bluntly from the rectus abdominis muscle and the midline attachment was taken down with electrocautery. This was performed both
superiorly and inferiorly to our incision. The rectus was split along the midline, first scoring the linea alba with electrocautery, then bluntly with a Charla clamp to reveal the peritoneum, which was grasped and elevated with Kellys. The
peritoneum was incised with Metzenbaum scissors, taking care to avoid injury to intraperitoneal structures. The peritoneum was incised cranially and caudally to the greatest extent that our incision would allow, taking care to avoid injury to the
bladder. A small Jeff with port cap was placed and a robotic 12 mm port was placed through the port cap. The patient was placed in steep trendelenburg and [id number]. The robot was docked from the patient's left side. From the RLQ to
Ruiz's point, the instruments introduced were the scissors, camera, bipolar grasper and tip-up grasper, respectively.
The small bowel was retracted out of the pelvis and towards the right upper quadrant. Some adhesions were noted from the left pelvic sidewall to the sigmoid colon, which were taken down with electrocautery. Along the mid-sigmoid colon, I
encountered a small abscess between the colon and the left lower abdomen, close to the pelvic brim. This was immediately suctioned. There was no contamination. The sigmoid was grasped and elevated to commence a medial to lateral dissection. The
peritoneum overlying the sacral promontory was scored and entered. This dissection was taken medially toward the left ureter and superiorly towards the TEA pedicle, taking care to avoid injury to the hypogastric nerves. The left and right ureter
were promptly identified and were kept safe from my dissection.
I continued the dissection inferiorly, posteriorly to the rectum in the presacral plane, and took this to just beyond the sacral promontory. I then worked superiorly toward the TEA pedicle. I dissected this circumferentially, taking care to avoid
injury to the hypogastric nerves. I divided this with the vessel sealer, close to its takeoff from the aorta. The TEA stump was completely hemostatic. I grasped the specimen side of the TEA pedicle and elevated this in order to continue a medial
to lateral dissection of the left colon. I carried this dissection up to the proximal descending colon, taking care to avoid injury to the left ureter and kidney. I took down the lateral attachments next, taking this up to the proximal descending
colon.
I turned back toward the pelvis to complete the rectosigmoid mobilization. I used the vessel sealer to connect the posterior dissection to the right lateral dissection. I retracted the rectosigmoid junction to the patient's right, and then scored
the left lateral peritoneum and used the vessel sealer to divide the lateral stalk to the same point as my right lateral dissection. I performed a flexible sigmoidoscopy. There was minimal liquid stool, which I suctioned. There was no inflammation
noted within the rectum or distal sigmoid colon. I passed up EEA sizers in progressively increasing size to ensure adequate circumference and reach. However, I was only able to pass up the small EEA sizer due to scar tissue noted at the anterior
reflection, causing a kink in the rectum. I went back to the console. Using meticulous dissection and the robotic scissors, I divided through the scar to free the rectum, taking care to avoid injury to the uterus. After the rectum was more
mobile, I passed EEA sizers up again. However, I was only able to pass up the medium EEA sizer as the scar at the anterior reflection appeared to be causing a narrowing of the rectum. I went back to the console and mobilized the rectum
circumferentially down to the mid rectum, taking care to avoid injury to the uterus and vagina. I once again passed up EEA sizers and I was able to pass up the large EEA sizer. The sizer did not go beyond this narrowed segment of rectum. However,
now that the rectum was freely mobile, this scarred location was about 16 or so cm from the anal verge. Therefore, I selected an approximate transection point that was distal to this scarring. I went back to the console. I retracted the
rectosigmoid anteriorly again, and created a tunnel through the mesorectum with the vessel sealer. I divided the mesorectum with the vessel-sealer. The right lower quadrant port was upsized to the robotic 12 mm port. I stapled and divided at about
15cm proximal from the anal verge with the 60 mm robotic stapler using the blue load.
For my proximal transection point, I assessed the sigmoid and distal descending colon. There was inflammation and thickening of the colon wall up to the level of the proximal sigmoid colon. I selected a point just proximal to this area on healthy
colon. I elevated the colon at this point with my tip up grasper. I fanned out the mesentery from the divided TEA stump. I ligated the mesentery from this spot to my transection point on proximal sigmoid colon, taking care to avoid injury to the
left ureter. Anesthesia injected ICG and perfusion was confirmed to my proposed transection point.
I elected to proceed with an intracorporeal end-to-end stapled anastomosis with EEA stapler. A colotomy in the devascularized segment of colon was created using the robotic scissors at a point distal to our proposed proximal transection point. The
anvil with a long Prolene suture attached at the tip was carefully passed through the colotomy and advanced proximally up the descending colon, with the long Prolene remaining outside of the colon. The colotomy was closed around the Prolene stitch
using a V-Loc running stitch. The robotic stapler with a blue load was used to staple and divide the proximal sigmoid colon at our proposed transection point where adequate perfusion was noted on firefly. The specimen was placed in the left upper
quadrant. The Prolene attached to the anvil was grasped and pulled through the staple line after removing a few kelsy. I grasped and elevated the anvil and cleaned up the staple line from intervening mesentery and fat. The anvil was seated along
the staple line nicely without intervening diverticula or mesentery. The specimen was removed through the Pfannenstiel port and passed off for pathology.
I checked the reach of the proposed anastomosis once more. I freed up a few more adhesions at the splenic flexure and divided a few omental adhesions to the descending colon. At this point, the reach was more than adequate. The operative field
was surveyed and hemostasis was ensured. Sizers were passed up the rectum once more to ensure adequate circumference and length. The EEA stapler was passed transanally to the distal staple line. The pin was extended and was connected with the
anvil. After ensuring there was no twist to the mesentery and there was no tension, the EEA stapler was closed for 1 minute and then fired. Both donuts were intact. A leak test was performed by filling the pelvis with saline, occluding the
proximal lumen and insufflating with the flexible sigmoidoscope. There was no evidence of leak from the anastomosis. Endoscopically, the anastomosis was intact without evidence of bleeding. The colorectum was desufflated and the flexible
sigmoidoscope removed. The anterior aspect of the anastomosis was oversewn with interrupted Lemberts using 2-0 Vicryl's.
The robotic instruments were removed and the robot was undocked. Using laparoscopic visualization, a TAP block was performed using a total of 30 mL of 0.25% Marcaine with epinephrine mixed with dexamethasone and injecting in the transverse
abdominis plane bilaterally. The right lower quadrant 12mm port was closed with a Fredi-Salmeron and an 0-vicryl. The remaining ports were removed under direct visualization and no bleeding was noted. The Pfannenstiel incision was closed in
layers. First, the peritoneum was closed with a running 0-Vicryl stitch. Then, the anterior fascia was closed using a #1 Stratafix suture. The incisions were irrigated. The remaining 30 cc of 0.25% Marcaine with epinephrine mixed with
dexamethasone were injected around the incisions. The incisions were closed with running subcuticular 4-0 Monocryl and dressed with Dermabond.
At this point, the procedure was complete. The patient was awoken and extubated without complication. All needle, sponge and instrument counts were reported as correct. The patient tolerated the procedure well and was transferred to the recovery
room in stable condition with the diaz in place.
DICTATED BY: Chuck Bah MD
[2024-10-09 12:57] LABS: Glucose - Point of Care 212 mg/dl (70-99)
[2024-10-09] MEDS: NOVOLOG vial 1 UNITS SC (13:15)
[2024-10-09] MEDS: TORADOL 15 MG IV ×2 (14:12→19:48)
[2024-10-09] MEDS: CRESTOR 20 MG PO (16:50)
[2024-10-09] MEDS: LEXAPRO 20 MG PO (16:50)
[2024-10-09] MEDS: ARIMIDEX 1 MG PO (16:50)
[2024-10-09 23:58] LABS: Glucose - Point of Care 153 mg/dl (70-99)
[2024-10-10] VITALS: BP 104/66
[2024-10-10] MEDS: TORADOL IV (03:02)
[2024-10-10 03:15] VITALS: BP 107/65
[2024-10-10] MEDS: TYLENOL 1000 MG PO ×3 (05:43→17:36)
[2024-10-10 07:40] VITALS: BP 109/70
[2024-10-10 07:52] LABS: % Basophils 0.1 % (0-2); % Immature Granulocytes 0.4 % (0-0.5); % Lymphocytes 5.7 % (20.5-51.1); % Monocytes 9.7 % (1.7-9.3); % Neutrophils 84.1 % (42.2-75.2); Absolute Lymphocytes 0.6 10^3/uL (1.2-3.4); Absolute Neutrophils 8.6 10^3/uL (1.4-6.5); Hematocrit 35.2 % (37.0-47.0); Hemoglobin 12.1 g/dL (12.0-16.0); Mean Corp Hgb Conc. 34.4 g/dL (33.0-37.0); Mean Corpuscular Hgb 29.5 pg (27.0-31.0); Mean Corpuscular Volume 85.9 fL (81.0-99.0); Mean Platelet Volume 8.5 fL (7.4-10.4); Nucleated Red Blood Cells % 0 %; Platelet Count 224 10^3/uL (130-400); Red Cell Dist. Width 13.1 % (11.5-14.5); White Blood Cell Count 10.2 10^3/uL (4.8-10.8)
[2024-10-10 08:12] LABS: Blood Urea Nitrogen 9 mg/dl (7-17); Calcium 6.7 mg/dl (8.4-10.2); Carbon Dioxide 23 mmol/L (22-30); Chloride 104 mmol/L (98-107); Estimated Creatinine Clearance 99 ml/min; Glucose 107 mg/dl (70-99); Magnesium 2.9 mg/dl (1.6-2.3); Potassium 4.2 mmol/L (3.5-5.1); Sodium 140 mmol/L (135-145); eGFR > 60.00
[2024-10-10 08:15] LABS: Glucose - Point of Care 114 mg/dl (70-99)
[2024-10-10 08:24] VITALS: BMI 30.8
[2024-10-10] MEDS: TORADOL 15 MG IV ×3 (08:31→20:36)
[2024-10-10] MEDS: PROTONIX 40 MG PO (08:32)
[2024-10-10] MEDS: ENTEREG 12 MG PO ×2 (08:32→20:35)
--- NOTE | 2024-10-10 09:59 | W.PN.GS2 ---
Addendum entered and electronically signed by Karlos Lindquist MD 10/10/24 10:08:
Patient seen and examined.
No complaints. Pain well-controlled. Passing flatus, no BM. No nausea or vomiting. Ambulating. Diaz in place. Afebrile.
Gen: NAD
Abd: soft, NT/ND, non-peritoneal, incisions c/d/i - no erythema, ecchymosis or drainage
: Diaz clear urine
Labs reviewed
64 yo female with a h/o diverticulitis presenting for scheduled surgery
POD #1 Robotic sigmoidectomy, drainage of intra-abdominal abscess, lysis of adhesions, mesenteric angiography, flexible sigmoidoscopy, laparoscopic tap block
AFVSS
Labs stable
Following expected post operative course
--Regular diet
--Pain control: Tylenol, Toradol, Oxycodone
--Remove Diaz for voiding trial
--OOB/Ambulate
--Home meds
--DVT: Lovenox
Original Note:
Today's Communication / Plan
-
void trial
regular diet
Assessment / Plan
-
64 yo female with a h/o diverticulitis presenting for scheduled surgery now POD #1 Robotic sigmoidectomy, drainage of intra-abdominal abscess, lysis of adhesions, mesenteric angiography, flexible sigmoidoscopy, laparoscopic tap block
AFVSS
Labs stable
Following expected post operative course
--continue regular diet as tolerated
--remove diaz for voiding trial
--OOB/Ambulate
--Multimodal analgesics scheduled and prn
--SCDs and lovenox for VTE ppx
Subjective Data
-
Date of Service: October 10, 2024
Patient seen and examined at bedside with Dr. Lindquist. Denies n/v. Passing gas. No BM as of yet. Pain well managed thus far.
Objective Data
-
Intake and Output
10/09/24 10/10/24 10/11/24
06:59 06:59 06:59
Intake Total 1040 / 1040
Output Total 150 / 150 2149
Balance 890 / 890 -2150 / -2150
Intake:
Oral fluids 240 / 240
IV fluids (Total) 800 / 800
Normosol 200 / 200
Output:
Urine, Diaz 150 / 150 2149
Vital Signs
Temp Pulse Resp BP Pulse Ox
97.9 F 70 14 109/70 98
10/10/24 07:40 10/10/24 07:40 10/10/24 07:40 10/10/24 07:40 10/10/24 07:40
Lab Results
10/10/24 06:01
10/10/24 06:01
Calcium 6.7 mg/dl (8.4-10.2) L* 10/10/24 06:01
Magnesium 2.9 mg/dl (1.6-2.3) H 10/10/24 06:01
Total Bilirubin 0.5 mg/dl (0.2-1.3) 10/01/24 08:12
AST 27 U/L (14-36) 10/01/24 08:12
ALT 26 U/L (0-35) 10/01/24 08:12
Alkaline Phosphatase 65 U/L (38-126) 10/01/24 08:12
Total Protein 7.0 g/dl (6.3-8.2) 10/01/24 08:12
Albumin 4.7 g/dl (3.5-5.0) 10/01/24 08:12
Physical Exam
-
NAD
ABD soft, minimal distention, minimal incisional tenderness
Incisions well approximated, intact glue
Patient has a diaz catheter: Yes
Patient has a central line: No
[2024-10-10] MEDS: NORMOSOL-R/PLASMALYTE-A 1000 IV (10:31)
[2024-10-10 11:00] VITALS: BP 115/70
[2024-10-10] MEDS: OSCAL 500 + D 500 MG PO ×2 (13:52→20:35)
[2024-10-10 15:24] VITALS: BP 114/64
[2024-10-10] MEDS: CRESTOR 20 MG PO (17:36)
[2024-10-10] MEDS: LOVENOX 40 MG SC (17:37)
[2024-10-10] MEDS: LEXAPRO 20 MG PO (17:37)
[2024-10-10] MEDS: ARIMIDEX 1 MG PO (17:37)
[2024-10-10 23:25] VITALS: BP 117/68
[2024-10-11] MEDS: TYLENOL 1000 MG PO ×2 (01:03→05:49)
[2024-10-11] MEDS: TORADOL 15 MG IV ×2 (01:04→08:35)
[2024-10-11 06:00] VITALS: BMI 29.9
[2024-10-11 06:55] VITALS: BP 122/75
[2024-10-11 07:17] LABS: Hematocrit 33.7 % (37.0-47.0); Hemoglobin 11.7 g/dL (12.0-16.0); Mean Corp Hgb Conc. 34.7 g/dL (33.0-37.0); Mean Corpuscular Hgb 29.9 pg (27.0-31.0); Mean Corpuscular Volume 86.2 fL (81.0-99.0); Mean Platelet Volume 8.7 fL (7.4-10.4); Platelet Count 178 10^3/uL (130-400); Red Blood Cell Count 3.91 10^6/uL (4.20-5.40); Red Cell Dist. Width 13.3 % (11.5-14.5); White Blood Cell Count 5.6 10^3/uL (4.8-10.8)
[2024-10-11 07:51] LABS: Blood Urea Nitrogen 10 mg/dl (7-17); Calcium 8.1 mg/dl (8.4-10.2); Carbon Dioxide 25 mmol/L (22-30); Chloride 111 mmol/L (98-107); Estimated Creatinine Clearance 98 ml/min; Glucose 96 mg/dl (70-99); Potassium 4.1 mmol/L (3.5-5.1); Sodium 142 mmol/L (135-145); eGFR > 60.00
[2024-10-11] MEDS: PROTONIX 40 MG PO (08:34)
[2024-10-11] MEDS: OSCAL 500 + D 500 MG PO (08:35)
[2024-10-11] MEDS: ENTEREG 12 MG PO (08:35)
--- NOTE | 2024-10-11 09:54 | W.PN.GS2 ---
Today's Communication / Plan
-
dispo planning
Assessment / Plan
-
64 yo female with a h/o diverticulitis presenting for scheduled surgery now POD #2 Robotic sigmoidectomy, drainage of intra-abdominal abscess, lysis of adhesions, mesenteric angiography, flexible sigmoidoscopy, laparoscopic tap block
AFVSS
Labs stable
Following expected post operative course
--continue regular diet as tolerated
--OOB/Ambulate
--Multimodal analgesics scheduled and prn
--SCDs and lovenox for VTE ppx
discharge to home
Subjective Data
-
Date of Service: October 11, 2024
Patient seen and examined at bedside with Dr. Lindquist. Miriam n/v. Ambulating in hallway. Passing flatus/bm's. tolerating diet. Minimal discomfort. voiding well.
Objective Data
-
Intake and Output
10/10/24 10/11/24 10/12/24
06:59 06:59 06:59
Intake Total 1040 / 1040 960 / 960
Output Total 150 / 150 2150 / 2150
Balance 890 / 890 -1190 / -1190
Intake:
Oral fluids 240 / 240 960 / 960
IV fluids (Total) 800 / 800
Normosol 200 / 200
Output:
Urine, Diaz 150 / 150 2150 / 2150
Other:
Number of approximated MODERATE 4
amounts of urine
Vital Signs
Temp Pulse Resp BP Pulse Ox
97.5 F 60 16 122/75 98
10/11/24 06:55 10/11/24 06:55 10/11/24 06:55 10/11/24 06:55 10/11/24 06:55
Lab Results
10/11/24 05:29
10/11/24 05:29
Calcium 8.1 mg/dl (8.4-10.2) L 10/11/24 05:29
Magnesium 2.9 mg/dl (1.6-2.3) H 10/10/24 06:01
Total Bilirubin 0.5 mg/dl (0.2-1.3) 10/01/24 08:12
AST 27 U/L (14-36) 10/01/24 08:12
ALT 26 U/L (0-35) 10/01/24 08:12
Alkaline Phosphatase 65 U/L (38-126) 10/01/24 08:12
Total Protein 7.0 g/dl (6.3-8.2) 10/01/24 08:12
Albumin 4.7 g/dl (3.5-5.0) 10/01/24 08:12
Physical Exam
-
NAD
ABD soft, ND, NT
Incisions well approximated, intact glue
Patient has a diaz catheter: No
Patient has a central line: No
[2024-10-11 11:16] VITALS: BP 135/75
--- NOTE | 2024-10-11 11:21 | CM ---
Patient who is s/p Robotic sigmoidectomy, drainage of intra-abdominal abscess, lysis of adhesions.
See Initial Assessment checklist.
Met with patient who was preparing for discharge. The patient says she feels ready for discharge home today. She states she has been OOB in the room. Her will provide transport home.
No CM d/c needs identified.
Plan home today.
--- NOTE | 2024-10-11 14:27 | W.DCSUMMARY ---
Discharge Summary
Discharge Data
Date of Admission: 10/09/24
Date of Discharge: 10/11/24
-
Pending Results: No
Hospital Course
Ms Alvares presented for scheduled operative management of recurrent diverticulitis with robotic sigmoidectomy with drainage of intraabdominal abscess preformed. She tolerated the procedure well without complication. She had good bowel recovery post
operatively and was tolerating regular diet well. Pain was well controlled on oral analgesics prior to discharge.
Discharge Plan
-
Patient Disposition: Home (Routine Discharge)
Discharge Diagnosis/Procedures: Robotic sigmoidectomy
Condition: Good
Diet: As tolerated and Regular
Activity: No strenuous activity
Additional Activity: Do not lift over 10lbs (gallon of milk)
Driving Restrictions: Wait until comfortable twisting/off narcotics
Bathing Restrictions: OK to Shower
Wound Care: The glue over your incisions will flake off on its own over the next 2-3 weeks. Avoid scrubbing or picking it off. Do not soak in a tub or pool for 2 weeks.
Activity Restrictions/Additional Instructions:
Call your surgeon if you have worsening pain, nausea with vomiting or a fever >100.4
Referrals:
Maverick Bee DO [Family Provider] -
Chuck Bah MD [Active] - in two to four weeks
Prescriptions:
New
acetaminophen 325 mg tablet
650 mg PO Q4HPRN PRN (Reason: mild pain) Qty: 1 0RF
ibuprofen 200 mg tablet
400 - 600 mg PO Q6HPRN PRN (Reason: moderate pain) Qty: 1 0RF
oxycodone 5 mg tablet
5 mg PO Q4HPRN PRN (Reason: breakthrough/severe pain) Qty: 15 0RF
Continued
pantoprazole 40 MG tablet,delayed release (DR/EC)
40 mg PO DAILY
xtojeiisbve-kcofanryr-vun C-Mn 1 TAB tablet
1 tab PO QPM
escitalopram oxalate 20 MG tablet
20 mg PO QPM
rosuvastatin 20 MG tablet
20 mg PO QPM
cholecalciferol (vitamin D3) 2,000 UNITS tablet
2,000 units PO QPM
Centrum Silver Women 1 EACH tablet
1 ea PO QPM
anastrozole 1 mg tablet
1 mg PO QPM
Prolia 60 mg/mL Syringe
60 mg SC [id number]
coQ10 (ubiquinol) 100 mg Capsule
100 mg PO QPM
Rybelsus 7 mg Tablet
7 mg PO DAILY
Calcium + D
1 tab PO QPM
Rx Instructions:
650 mg Calcium/ 100 mcg D3
Discontinued
metronidazole 500 mg Tablet
500 mg PO PRE PROCEDURE
neomycin 500 mg Tablet
1 g PO PRE PROCEDURE
Discharge Orders:
Discharge Patient (As Directed); Ordered 10/11/24
Ordered By: Arlen Bal
Discharge Date and Time
Discharge Date/Time: 10/11/24 11:31
Print Language: MALDIVIAN
== END 2024-10-11 11:31 | disposition home or self-care (01) | DRG 329 ==
LOC: 2 SOUTH 06:10
PROVIDERS: Registered Nurse; ADMITTING PHYSICIAN Surgery; FAMILY PHYSICIAN Family Medicine
PROC: 0J9C3ZZ Drainage of Pelvic Region Subcutaneous Tissue and Fascia, Percutaneous Approach (ICD-10-PCS; 2024-10-09)
PROC: 8E0W0CZ Robotic Assisted Procedure of Trunk Region, Open Approach (ICD-10-PCS; 2024-10-09)
PROC: 0DTN0ZZ Resection of Sigmoid Colon, Open Approach (ICD-10-PCS; 2024-10-09)
DX: K57.20 Diverticulitis of large intestine with perforation and abscess without bleeding (principal); K65.1 Peritoneal abscess
CPT/HCPCS: 88307; 36415; 71046; 80048; 80053; 82962; 83735; 85025; 85027; 85610; 85730; 86850; 86900; 86901; 93005

== ENCOUNTER → 2024-11-04 15:19 | Outpatient (REF) | payer BC, SELFPAY | LOC: WDC 15:19 | PROVIDERS: ATTENDING PHYSICIAN Family Medicine Geriatric Medicine; FAMILY PHYSICIAN Family Medicine | DX: Z12.31 Encounter for screening mammogram for malignant neoplasm of breast (principal) | CPT/HCPCS: 77063; 77067 ==